=== PATIENT | male | born 1940 | race Caucasian/White ===

== ENCOUNTER 2023-11-08 15:13 | Emergency (ER) | payer MEDICAID ==
[~2023-11-08] VITALS: Ht 167.6 cm; Wt 80.0 kg
[2023-11-08 15:14] VITALS: O2SAT 97
[2023-11-08] MEDS: SODIUM CHLORIDE 0.9% 1000ML BAG (SEPSIS BOLUS) IV ONE (15:52)
[2023-11-08 16:10] LABS: HEMATOCRIT. 36.5 % (42.0-52.0); HEMOGLOBIN. 13.1 g/dL (14.0-18.0); MEAN CORPUSCULAR HEMOGLOBIN 33.8 pg (28.0-32.0); MEAN CORPUSCULAR VOLUME 93.9 fL (80.0-94.0); MEAN PLATELET VOLUME 7.6 fl (7.4-10.4); PLATELET 147 x1000/uL (130-400); RED BLOOD CELL COUNT 3.89 mill/uL (4.7-6.1); RED CELL DISTRIBUTION WIDTH 12.8 % (11.6-14.6); WHITE BLOOD COUNT 9.2 x1000/uL (4.5-11.0)
[2023-11-08 16:13] LABS: DIFFERENTIAL COMMENT 1
[2023-11-08 16:19] LABS: PROTHROMBIN TIME 10.9 sec (9.6-11.0)
[2023-11-08 16:30] LABS: CHLORIDE 107 mEq/L (98-107); POTASSIUM 3.6 mEq/L (3.5-5.1); SODIUM 137 mEq/L (136-145)
[2023-11-08 16:31] LABS: CARBON DIOXIDE 24 mEq/L (21-32)
[2023-11-08 16:32] LABS: CALCIUM 8.6 mg/dL (8.7-10.4)
[2023-11-08] MEDS: ACETAMINOPHEN 1000MG/100ML 100 ML IV ONE (16:33)
[2023-11-08] MEDS: PIPERACILLIN/TAZO 3.375G/50ML 50 ML IV ONE (16:35)
[2023-11-08 16:37] LABS: CREATININE 0.8 mg/dL (0.6-1.3); GLUCOSE 111 mg/dL (70-105); UREA NITROGEN BLOOD 13 mg/dL (9-23)
[2023-11-08 16:38] LABS: ALANINE AMINOTRANSFERASE 14 IU/L (10-49); ALBUMIN 4.5 g/dL (3.2-4.8); ASPARTATE AMINOTRANSFERASE 20 IU/L (<34)
[2023-11-08 16:38] LABS: CLARITY URINE CLEAR (CLEAR); COLOR URINE YELLOW (YELLOW); GLUCOSE URINE NEGATIVE (NEGATIVE); KETONES URINE TRACE (NEGATIVE); LEUKOCYTE ESTERASE URINE NEGATIVE (NEGATIVE); NITRITE URINE NEGATIVE (NEGATIVE); OCCULT BLOOD URINE NEGATIVE (NEGATIVE); PROTEIN URINE TRACE (NEGATIVE); SPECIFIC GRAVITY URINE 1.026 (1.005-1.030); UROBILINOGEN URINE 0.2 E.U./dL (0.2-1.0)
[2023-11-08] MEDS: VANCOMYCIN 1G PREMIX 200 ML IV ONE (16:38)
[2023-11-08 16:39] LABS: BILIRUBIN DIRECT 0.2 mg/dL (<=3.0); BILIRUBIN TOTAL 0.6 mg/dL (0.1-1.0); PROTEIN TOTAL 7.2 g/dL (6.0-8.3)
[2023-11-08 16:47] LABS: ETHANOL BLOOD < 10 mg/dL (<10)
[2023-11-08 16:55] LABS: BACTERIA URINE 1+; SQUAMOUS EPITHELIAL CELL URINE RARE /lpf (RARE/1+); WBC URINE 0-2 /hpf (0-2)
[2023-11-08 16:56] LABS: RBC URINE 0-2 /hpf (0-2)
[2023-11-08 17:04] LABS: *AMPHETAMINES SCREEN URINE NEGATIVE (NEGATIVE); *BARBITURATES SCREEN URINE NEGATIVE (NEGATIVE); *BENZODIAZEPINES SCREEN URINE NEGATIVE (NEGATIVE); *COCAINE SCREEN URINE NEGATIVE (NEGATIVE); CANNABINOID URINE SCREEN NEGATIVE (NEGATIVE); ECSTASY MDMA SCREEN URINE NEGATIVE (NEGATIVE); METHADONE URINE SCREEN NEGATIVE (NEGATIVE); OPIATES URINE SCREEN NEGATIVE (NEGATIVE); PHENCYCLIDINE URINE SCREEN NEGATIVE (NEGATIVE)
[2023-11-08 17:14] LABS: PLATELET ESTIMATE NORMAL
[2023-11-08 23:00] VITALS: BP 132/61; PULSE 68; RESP 14; TEMP 97.6
== END 2023-11-08 22:58 | disposition left against medical advice (07) ==
LOC: ER 15:13
DX: A41.9 Sepsis, unspecified organism (principal); G93.40 Encephalopathy, unspecified
CPT/HCPCS: 80076; 80305; 80048; 81003; 80320; 83605; 85025; 85610; 87040; 87086; 36415; 84145; 71045; 70450; 93005; 96368; 96361; 96365; 99291; J2543; J3370; J7030; G0480; J0131